=== PATIENT | male | born 1945 | race African-American/Black ===

== ENCOUNTER 2022-01-10 13:11 | Outpatient (CLI) | payer MEDICARE | END 2022-01-10 13:12 | disposition home or self-care (01) | LOC: CSHCT 13:11 | PROVIDERS: ATTEND Urology | DX: N20.0 Calculus of kidney (principal); K80.20 Calculus of gallbladder without cholecystitis without obstruction; N40.0 Benign prostatic hyperplasia without lower urinary tract symptoms; N32.89 Other specified disorders of bladder | CPT/HCPCS: 74176 ==